=== PATIENT | female | born 1935 | race Two or more races ===

== ENCOUNTER 2016-11-26 06:33 | Inpatient (IN) | payer OTHER, MEDICAID ==
[~2016-11-26] VITALS: Ht 157.5 cm; Wt 61.7 kg
[2016-11-26] MEDS ORDERED: IV NS 0.9% 1,000 ML BAG IV ONE (07:00)
[2016-11-26] MEDS ORDERED: CEFTRIAXONE 1GM BAG (ER ONLY) 50 ML IV ONE ×2 (07:00→07:23)
[2016-11-26] MEDS ORDERED: ACETAMINOPHEN ES 500 MG TABLET PO ONE (07:00)
[2016-11-26] MEDS ORDERED: IV SET PRIMARY 1 EA INFUS.SET MC ONE ×2 (07:22→07:24)
[2016-11-26] MEDS ORDERED: IV NS 0.9% 2,000 ML ONE (07:22)
[2016-11-26] MEDS ORDERED: ACETAMINOPHEN ES 500 MG TABLET ONE (07:23)
[2016-11-26 07:25] LABS: BASOPHILS % (AUTO) 0.2 % (0.0-2.0); DIFF TOTAL % 100 %; EOSINOPHILS % (AUTO) 0.1 % (0.0-6.0); HEMATOCRIT 31 % (33-45); HEMOGLOBIN 10.5 g/dL (11.5-14.8); LYMPHOCYTES # (AUTO) 0.5 /CMM (0.8-4.8); LYMPHOCYTES % (AUTO) 5.9 % (20.0-44.0); MEAN CORPUSCULAR HEMOGLOBIN 31 PG (26.0-33.0); MEAN CORPUSCULAR HGB CONC 34 g/dl (31.0-36.0); MEAN CORPUSCULAR VOLUME 91 fL (82-100); MONOCYTES # (AUTO) 0.5 /CMM (0.1-1.30); MONOCYTES % (AUTO) 5.8 % (2.0-12.0); NEUTROPHILS # (AUTO) 7.6 /CMM (1.8-8.9); PLATELET COUNT (AUTO) 193 /CMM (150-450); RED BLOOD CELL COUNT(AUTO) 3.43 MIL/uL (4.0-5.2); WHITE BLOOD COUNT (AUTO) 8.7 K/uL (4.3-11.0)
[2016-11-26 07:42] LABS: ALANINE AMINOTRANSFERASE 37 U/L (12-78); ALBUMIN 3.4 g/dL (3.4-5.0); ANION GAP 13 (5-14); ASPARTATE AMINOTRANSFERASE 27 U/L (15-37); BILIRUBIN,DIRECT 0.1 mg/dL (0.0-0.2); BILIRUBIN,TOTAL 0.2 mg/dL (0.2-1.0); CALCIUM, SERUM 8.3 mg/dL (8.5-10.1); CARBON DIOXIDE 26 mmol/L (21-32); CHLORIDE 97 mmol/L (98-107); GLUCOSE 112 mg/dL (74-106); INDIRECT BILIRUBIN 0.1 mg/dL (0.0-1.1); POTASSIUM 4.5 mmol/L (3.5-5.1); SODIUM SERUM 132 mmol/L (136-145); TOTAL PROTEIN, SERUM 6.5 g/dL (6.4-8.2); UREA NITROGEN, BLOOD 15 mg/dL (7-18)
[2016-11-26 07:47] LABS: TROPONIN I < 0.017 ng/mL (0.00-0.056)
[2016-11-26 07:49] LABS: LACTIC ACID 0.7 mmol/L (0.4-2.0)
[2016-11-26 08:02] LABS: INR 1.03 (0.87-1.13); PROTHROMBIN TIME 11.1 SECS (9.5-12.7)
[2016-11-26 08:23] LABS: KETONES,URINE NEGATIVE (NEGATIVE); LEUKOCYTE ESTERASE ,URINE 1+ (NEGATIVE); PH,URINE 7.5 (5.0-8.0)
[2016-11-26 08:25] LABS: ADD UA MICROSCOPIC YES
[2016-11-26 08:31] LABS: ADD URINE CULTURE YES; RBC,URINE 0-2 /HPF (0-2); WBC,URINE 21-50 /HPF (0-3)
[2016-11-26] MEDS ORDERED: IV NS 0.9% 1,000 ML IV PRN ×2 (08:54→09:45)
[2016-11-26] MEDS ORDERED: HYDROCODONE/APAP 5/325MG 1 EACH TABLET PO PRN ×2 (09:00→09:45)
[2016-11-26] MEDS ORDERED: CEFTRIAXONE 1 G in IV D5W 50 ML IV SCH (09:00)
[2016-11-26] MEDS ORDERED: ONDANSETRON HCL/PF 4 MG/2 ML VIAL IVP PRN ×2 (09:00→09:45)
[2016-11-26] MEDS ORDERED: MAGNESIUM HYDROXIDE 30 ML UDC PO PRN ×2 (09:00→09:45)
[2016-11-26] MEDS ORDERED: MAG HYDROX/AL HYDROX/SIMETH 30 ML UDC PO PRN ×2 (09:00→09:45)
[2016-11-26] MEDS ORDERED: ZOLPIDEM TARTRATE 5 MG TABLET PO PRN ×2 (09:00→09:45)
[2016-11-26] MEDS ORDERED: ACETAMINOPHEN 325 MG TABLET PO PRN ×2 (09:00→09:45)
[2016-11-26] MEDS ORDERED: ENOXAPARIN SODIUM 40 MG/0.4 ML DISP.SYRIN SQ SCH (09:00)
[2016-11-26] MEDS ORDERED: Z GUARD REMEDY 2 OZ OINT TP PRN ×2 (09:00→09:45)
[2016-11-26] MEDS ORDERED: OSELTAMIVIR PHOSPHATE 75 MG CAPSULE PO ONE (09:30)
[2016-11-26 10:30] VITALS: BP 135/68
[2016-11-26] MEDS ORDERED: GABA-534 PO (10:54)
[2016-11-26] MEDS ORDERED: ZOLP5TAB2 PO (10:54)
[2016-11-26] MEDS ORDERED: INSU100I19 SQ (10:54)
[2016-11-26] MEDS ORDERED: GLIP10TA11 PO (10:54)
[2016-11-26] MEDS ORDERED: PRAV40TA3 PO (10:54)
[2016-11-26] MEDS ORDERED: CITA10TA9 PO (10:54)
[2016-11-26] MEDS ORDERED: ISAV186C PO (10:54)
[2016-11-26] MEDS ORDERED: ALEN70TA45 PO (10:54)
[2016-11-26] MEDS ORDERED: ALPR0.5T PO (10:54)
[2016-11-26] MEDS ORDERED: HYDR-552 PO (10:54)
[2016-11-26] MEDS ORDERED: METO50TA3 PO (10:54)
[2016-11-26] MEDS ORDERED: SITA50TA PO (10:54)
[2016-11-26] MEDS ORDERED: DEXTROSE 50%-WATER 50 ML DISP.SYRIN IV PRN (11:30)
[2016-11-26] MEDS ORDERED: INSULIN REGULAR, HUMAN 100 UNIT/ML 3 ML VIAL SQ PRN (11:30)
[2016-11-26] MEDS ORDERED: IV SET PRIMARY PUMP SET 1 EA INFUS.SET MC ONE (11:57)
[2016-11-26] MEDS ORDERED: SECONDARY IV SET 1 EA INFUS.SET MC ONE (11:58)
[2016-11-26] MEDS: ENOXAPARIN SODIUM 40 MG/0.4 ML DISP.SYRIN SQ SCH (12:49)
[2016-11-26] MEDS: BLOOD SUGAR DIAGNOSTIC 1 EACH STRIP IN SCH ×3 (12:50→22:05)
[2016-11-26] MEDS: CEFTRIAXONE 1 G in IV D5W 50 ML IV SCH (13:00)
[2016-11-26 15:01] VITALS: BP 135/68
[2016-11-26 16:00] VITALS: BP 151/66
[2016-11-26] MEDS: glipiZIDE 10 MG TABLET PO SCH (16:31)
[2016-11-26] MEDS: GABAPENTIN 300 MG CAPSULE PO SCH (16:31)
[2016-11-26] MEDS: HYDROCODONE/APAP 5/325MG 1 EACH TABLET PO SCH (16:31)
[2016-11-26] MEDS: OSELTAMIVIR PHOSPHATE 75 MG CAPSULE PO SCH (16:31)
[2016-11-26] MEDS: METOPROLOL TARTRATE 50 MG TABLET PO SCH (16:32)
[2016-11-26] MEDS: CRESEMBA 186 MG PO SCH (17:26)
[2016-11-26] MEDS ORDERED: ALPRAZOLAM 0.5 MG TABLET PO SCH (18:00)
[2016-11-26 20:27] VITALS: BP 146/61
[2016-11-26] MEDS: *INSULIN REGULAR(HUMULIN R)HUM 100 UNIT/ML VIAL SQ PRN (22:01)
[2016-11-27] VITALS (9 sets, daily range): BP systolic 134–186; BP diastolic 56–73
[2016-11-27] MEDS: LOPERAMIDE HCL UDC(2 MG/10 ML) 2 MG/10 ML UDC PO PRN (07:06)
[2016-11-27] MEDS: BLOOD SUGAR DIAGNOSTIC 1 EACH STRIP IN SCH ×4 (07:08→22:30)
[2016-11-27] MEDS ORDERED: PANTOPRAZOLE 40 MG TABLET.DR PO SCH (07:30)
[2016-11-27 07:41] LABS: CALCIUM, SERUM 7.5 mg/dL (8.5-10.1); CREATININE 0.9 mg/dL (0.6-1.3); POTASSIUM 3.7 mmol/L (3.5-5.1)
[2016-11-27 07:55] LABS: DIFF TOTAL % 100 %; HEMATOCRIT 31 % (33-45); HEMOGLOBIN 10.2 g/dL (11.5-14.8); LYMPHOCYTES # (AUTO) 0.7 /CMM (0.8-4.8); LYMPHOCYTES % (AUTO) 5.9 % (20.0-44.0); MEAN CORPUSCULAR HEMOGLOBIN 31 PG (26.0-33.0); MEAN CORPUSCULAR HGB CONC 33 g/dl (31.0-36.0); MEAN CORPUSCULAR VOLUME 92 fL (82-100); MONOCYTES # (AUTO) 0.4 /CMM (0.1-1.30); MONOCYTES % (AUTO) 3.5 % (2.0-12.0); NEUTROPHILS # (AUTO) 10.2 /CMM (1.8-8.9); NEUTROPHILS % (AUTO) 90.6 % (43.0-81.0); PLATELET COUNT (AUTO) 177 /CMM (150-450); RED BLOOD CELL COUNT(AUTO) 3.32 MIL/uL (4.0-5.2); WHITE BLOOD COUNT (AUTO) 11.2 K/uL (4.3-11.0)
[2016-11-27] MEDS: OSELTAMIVIR PHOSPHATE 75 MG CAPSULE PO SCH ×4 (08:11→16:51)
[2016-11-27] MEDS: ATORVASTATIN 10 MG TABLET PO SCH ×2 (08:11→08:23)
[2016-11-27] MEDS: GABAPENTIN 300 MG CAPSULE PO SCH ×2 (08:12→16:42)
[2016-11-27] MEDS: CRESEMBA 186 MG PO SCH ×2 (08:12→16:45)
[2016-11-27] MEDS: SITAGLIPTIN PHOSPHATE 50 MG TABLET PO SCH (08:12)
[2016-11-27] MEDS: PANTOPRAZOLE 40 MG TABLET.DR PO SCH (08:12)
[2016-11-27] MEDS: glipiZIDE 10 MG TABLET PO SCH ×2 (08:12→16:43)
[2016-11-27] MEDS: CITALOPRAM HYDROBROMIDE 10 MG TABLET PO SCH (08:12)
[2016-11-27] MEDS: INSULIN DETEMIR 100 UNIT/ML CARTRIDGE SQ SCH ×2 (08:13→08:22)
[2016-11-27] MEDS: METOPROLOL TARTRATE 50 MG TABLET PO SCH ×2 (08:13→16:43)
[2016-11-27] MEDS: HYDROCODONE/APAP 5/325MG 1 EACH TABLET PO SCH ×2 (08:21→16:43)
[2016-11-27] MEDS: ENOXAPARIN SODIUM 40 MG/0.4 ML DISP.SYRIN SQ SCH (10:15)
[2016-11-27] MEDS: CEFTRIAXONE 1 G in IV D5W 50 ML IV SCH (12:24)
[2016-11-27] MEDS: *INSULIN REGULAR(HUMULIN R)HUM 100 UNIT/ML VIAL SQ PRN (12:30)
[2016-11-27] MEDS ORDERED: ZOLPIDEM TARTRATE 5 MG TABLET PO SCH (22:00)
[2016-11-27] MEDS ORDERED: ZOLPIDEM TARTRATE 5 MG TABLET PO PRN (22:00)
[2016-11-28] VITALS: BP 137/57
[2016-11-28 04:00] VITALS: BP 140/85
[2016-11-28] MEDS: BLOOD SUGAR DIAGNOSTIC 1 EACH STRIP IN SCH ×4 (06:48→23:26)
[2016-11-28 07:30] LABS: BASOPHILS % (AUTO) 0.2 % (0.0-2.0); DIFF TOTAL % 100 %; EOSINOPHILS % (AUTO) 0.2 % (0.0-6.0); HEMATOCRIT 30 % (33-45); HEMOGLOBIN 10.1 g/dL (11.5-14.8); LYMPHOCYTES # (AUTO) 0.9 /CMM (0.8-4.8); LYMPHOCYTES % (AUTO) 7.2 % (20.0-44.0); MEAN CORPUSCULAR HEMOGLOBIN 31 PG (26.0-33.0); MEAN CORPUSCULAR HGB CONC 34 g/dl (31.0-36.0); MEAN CORPUSCULAR VOLUME 91 fL (82-100); MONOCYTES # (AUTO) 0.5 /CMM (0.1-1.30); MONOCYTES % (AUTO) 4.2 % (2.0-12.0); NEUTROPHILS # (AUTO) 10.6 /CMM (1.8-8.9); NEUTROPHILS % (AUTO) 88.2 % (43.0-81.0); PLATELET COUNT (AUTO) 198 /CMM (150-450); RED BLOOD CELL COUNT(AUTO) 3.28 MIL/uL (4.0-5.2); WHITE BLOOD COUNT (AUTO) 12.1 K/uL (4.3-11.0)
[2016-11-28] MEDS: PANTOPRAZOLE 40 MG TABLET.DR PO SCH ×2 (07:30→08:43)
[2016-11-28 08:01] LABS: CALCIUM, SERUM 8.2 mg/dL (8.5-10.1); CREATININE 0.9 mg/dL (0.6-1.3); POTASSIUM 3.4 mmol/L (3.5-5.1)
[2016-11-28] MEDS: glipiZIDE 10 MG TABLET PO SCH ×2 (08:42→16:31)
[2016-11-28] MEDS: ATORVASTATIN 10 MG TABLET PO SCH ×3 (08:43→09:00)
[2016-11-28] MEDS: METOPROLOL TARTRATE 50 MG TABLET PO SCH ×2 (08:43→16:31)
[2016-11-28] MEDS: SITAGLIPTIN PHOSPHATE 50 MG TABLET PO SCH (08:43)
[2016-11-28] MEDS: CRESEMBA 186 MG PO SCH ×2 (08:43→16:46)
[2016-11-28] MEDS: CITALOPRAM HYDROBROMIDE 10 MG TABLET PO SCH (08:43)
[2016-11-28] MEDS: HYDROCODONE/APAP 5/325MG 1 EACH TABLET PO SCH ×2 (08:44→16:32)
[2016-11-28] MEDS: INSULIN DETEMIR 100 UNIT/ML CARTRIDGE SQ SCH (08:46)
[2016-11-28] MEDS: OSELTAMIVIR PHOSPHATE 75 MG CAPSULE PO SCH ×2 (08:52→16:45)
[2016-11-28 09:04] VITALS: BP 140/85
[2016-11-28] MEDS: GABAPENTIN 300 MG CAPSULE PO SCH ×2 (09:05→16:31)
[2016-11-28] MEDS: ENOXAPARIN SODIUM 40 MG/0.4 ML DISP.SYRIN SQ SCH (09:44)
[2016-11-28] MEDS: CEFTRIAXONE 1 G in IV D5W 50 ML IV SCH (11:52)
[2016-11-28] MEDS ORDERED: POTASSIUM CHLORIDE 20 MEQ TAB.PRT.SR PO SCH (12:00)
[2016-11-28] MEDS: *INSULIN REGULAR(HUMULIN R)HUM 100 UNIT/ML VIAL SQ PRN ×3 (12:02→23:21)
[2016-11-28 16:00] VITALS: BP 148/74
[2016-11-28 16:03] VITALS: BP 148/74
[2016-11-28] MEDS ORDERED: IV NS 0.9% 1,000 ML IV ONE (16:30)
[2016-11-28] MEDS: LOPERAMIDE HCL UDC(2 MG/10 ML) 2 MG/10 ML UDC PO PRN (16:39)
[2016-11-28 20:00] VITALS: BP 129/43
[2016-11-28] MEDS: NITROFURANTOIN/NITROFURAN MAC 100 MG CAPSULE PO SCH (23:19)
[2016-11-29] MEDS: BLOOD SUGAR DIAGNOSTIC 1 EACH STRIP IN SCH (06:45)
[2016-11-29 07:23] LABS: BASOPHILS % (AUTO) 0.3 % (0.0-2.0); DIFF TOTAL % 100 %; EOSINOPHILS # (AUTO) 0.1 /CMM (0.0-0.7); HEMATOCRIT 30 % (33-45); LYMPHOCYTES # (AUTO) 1.4 /CMM (0.8-4.8); LYMPHOCYTES % (AUTO) 24.7 % (20.0-44.0); MEAN CORPUSCULAR HEMOGLOBIN 31 PG (26.0-33.0); MEAN CORPUSCULAR HGB CONC 33 g/dl (31.0-36.0); MEAN CORPUSCULAR VOLUME 92 fL (82-100); MONOCYTES # (AUTO) 0.3 /CMM (0.1-1.30); MONOCYTES % (AUTO) 6.2 % (2.0-12.0); NEUTROPHILS # (AUTO) 3.8 /CMM (1.8-8.9); NEUTROPHILS % (AUTO) 67.8 % (43.0-81.0); PLATELET COUNT (AUTO) 204 /CMM (150-450); RED BLOOD CELL COUNT(AUTO) 3.26 MIL/uL (4.0-5.2); WHITE BLOOD COUNT (AUTO) 5.6 K/uL (4.3-11.0)
[2016-11-29] MEDS ORDERED: ALENDRONATE 70 MG TABLET PO SCH (07:30)
[2016-11-29 07:35] LABS: CALCIUM, SERUM 8.4 mg/dL (8.5-10.1); CREATININE 0.9 mg/dL (0.6-1.3); POTASSIUM 3.6 mmol/L (3.5-5.1)
[2016-11-29] MEDS: PANTOPRAZOLE 40 MG TABLET.DR PO SCH (07:52)
[2016-11-29 08:00] VITALS: BP 152/58
[2016-11-29] MEDS ORDERED: NITR100C15 PO (08:38)
[2016-11-29] MEDS ORDERED: OSEL75CA PO (08:38)
[2016-11-29 08:48] VITALS: BP 158/58
[2016-11-29] MEDS: GABAPENTIN 300 MG CAPSULE PO SCH (08:48)
[2016-11-29] MEDS: METOPROLOL TARTRATE 50 MG TABLET PO SCH (08:48)
[2016-11-29] MEDS: NITROFURANTOIN/NITROFURAN MAC 100 MG CAPSULE PO SCH (08:48)
[2016-11-29] MEDS: CITALOPRAM HYDROBROMIDE 10 MG TABLET PO SCH (08:49)
[2016-11-29] MEDS: SITAGLIPTIN PHOSPHATE 50 MG TABLET PO SCH (08:49)
[2016-11-29] MEDS: OSELTAMIVIR PHOSPHATE 75 MG CAPSULE PO SCH ×2 (08:49→08:53)
[2016-11-29] MEDS: ATORVASTATIN 10 MG TABLET PO SCH (08:49)
[2016-11-29] MEDS: glipiZIDE 10 MG TABLET PO SCH (08:49)
[2016-11-29] MEDS: ENOXAPARIN SODIUM 40 MG/0.4 ML DISP.SYRIN SQ SCH (08:50)
[2016-11-29] MEDS: CRESEMBA 186 MG PO SCH (08:50)
[2016-11-29] MEDS: HYDROCODONE/APAP 5/325MG 1 EACH TABLET PO SCH (08:50)
[2016-11-29] MEDS: INSULIN DETEMIR 100 UNIT/ML CARTRIDGE SQ SCH (08:52)
== END 2016-11-29 10:21 | disposition home or self-care (01) | DRG 871 ==
LOC: ER 06:35 → TELE 10:03 → MED 11-28 11:08
PROVIDERS: ADMIT Family Medicine; ATTEND Family Medicine
DX: A41.9 Sepsis, unspecified organism (principal); G92 Toxic encephalopathy; N39.0 Urinary tract infection, site not specified; E87.1 Hypo-osmolality and hyponatremia; J98.11 Atelectasis; J11.1 Influenza due to unidentified influenza virus with other respiratory manifestations; Z86.73 Personal history of transient ischemic attack (TIA), and cerebral infarction without residual deficits; I25.10 Atherosclerotic heart disease of native coronary artery without angina pectoris; Z95.1 Presence of aortocoronary bypass graft; Z90.11 Acquired absence of right breast and nipple; Z85.3 Personal history of malignant neoplasm of breast; I10 Essential (primary) hypertension; E11.65 Type 2 diabetes mellitus with hyperglycemia; D64.9 Anemia, unspecified; B96.20 Unspecified Escherichia coli [E. coli] as the cause of diseases classified elsewhere; E11.649 Type 2 diabetes mellitus with hypoglycemia without coma; L80 Vitiligo; M81.0 Age-related osteoporosis without current pathological fracture; Z66 Do not resuscitate; Z79.4 Long term (current) use of insulin
CPT/HCPCS: 36415; 70450-TC; 71010-TC; 80048-TC; 80076-TC; 81000-TC; 82550-TC; 82962-TC; 83605-TC; 84484-TC; 85025-TC; 85730-TC; 87040-TC; 87045-TC; 87081-TC; 87086-TC; 87186-TC; 87400; 92611-TC; 97001-TC; A4606; J0696; J1650; J1815; J7030; J7060; Z7610